=== PATIENT | male | born 1970 | race African-American/Black ===

== ENCOUNTER 2016-08-02 09:19 | Outpatient (CLI) | payer OTHER ==
[2016-08-02] MEDS ORDERED: DOBUTamine 100 MG in D5W 92 ML IV SCH (12:00)
[2016-08-02] MEDS ORDERED: ATROPINE IV ONE (13:50)
== END 2016-08-02 09:20 | disposition home or self-care (01) ==
LOC: ECHO 09:19
PROVIDERS: ATTEND Internal Medicine Cardiovascular Disease
DX: R07.9 Chest pain, unspecified (principal)
CPT/HCPCS: 93017; 93320; 93325; 93350; 96374; J0461; J1250

== ENCOUNTER 2016-08-14 06:45 | Day surgery (SDC) | payer OTHER ==
[2016-08-14] MEDS ORDERED: ECOTRIN PO ONE ×2 (07:39→09:00)
[2016-08-14] MEDS ORDERED: NACL 0.9% 500 ML 500 ML ONE (07:39)
[2016-08-14] MEDS ORDERED: PLAVIX ONE (08:02)
[2016-08-14] MEDS ORDERED: HEPARIN/NS 5000 UNIT/500ML(CATH LAB) 1,000 ML IR ONE (08:08)
[2016-08-14] MEDS ORDERED: HEPARIN 10,000 UNITS/10 ML ONE (08:08)
[2016-08-14] MEDS ORDERED: CALAN ONE (08:09)
[2016-08-14] MEDS ORDERED: XYLOCAINE 2% INFILTRATI ONE (08:09)
[2016-08-14] MEDS ORDERED: SUBLIMAZE ONE (08:09)
[2016-08-14] MEDS ORDERED: NITROGLYCERIN SYRINGE 3 ML ONE (08:09)
[2016-08-14 08:17] LABS: INR 1.16 (0.87-1.13)
[2016-08-14] MEDS ORDERED: PLAVIX PO SCH (09:00)
[2016-08-14] MEDS ORDERED: NACL 0.9% 500 ML 500 ML IV SCH (09:00)
[2016-08-14 10:30] LABS: Basophils % (Auto) 0.6 % (0.0-1.8); Hematocrit 46.7 % (35.5-45.6); Hemoglobin 15.7 gm/dl (11.8-15.2); Mean Corpuscular HGB Conc 34 % (32-34); Mean Corpuscular Hemoglobin 30 pg (28-32); Mean Corpuscular Volume 90 fl (84-94); Platelet Count 214 K/mm3 (140-440); Red Blood Count 5.19 M/mm3 (3.65-5.03); Red Cell Distribution Width 13.2 % (13.2-15.2); White Blood Count 13.6 K/mm3 (4.5-11.0)
[2016-08-14] MEDS: VERSED ONE ×2 (10:49→11:03)
[2016-08-14 10:57] LABS: Anion Gap 19 mmol/L; BUN/Creatinine Ratio 26.66; Blood Urea Nitrogen 16 mg/dL (9-20); Calcium 8.9 mg/dL (8.4-10.2); Carbon Dioxide 23 mmol/L (22-30); Chloride 104.1 mmol/L (98-107); Glucose 89 mg/dL (75-100); Potassium 3.9 mmol/L (3.6-5.0); Sodium 142 mmol/L (137-145)
--- NOTE | 2016-08-14 13:11 | Short Stay Summary ---
Short Stay Documentation Date of service: 08/14/16 - History H&P: obtained from office - Allergies and Medications Current Medications: Allergies No Known Allergies Allergy (Unverified 08/02/16 09:19) Home Medications Medication Instructions Recorded Confirmed Last Taken Type Aspirin [Aspirin TAB] 325 mg PO ONCE 08/13/16 08/14/16 08/12/16 History Clopidogrel Bisulfate [Clopidogrel] 75 mg PO DAILY 08/13/16 08/14/16 08/12/16 History Nebivolol HCl [Bystolic] 2.5 mg PO DAILY 08/13/16 08/14/16 08/12/16 History Pantoprazole Sodium 40 mg PO DAILY 08/13/16 08/14/16 08/12/16 History Simvastatin [Simvastatin] 20 mg PO DAILY 08/13/16 08/14/16 08/12/16 History Active Medications Clopidogrel Bisulfate (Plavix) 75 mg PO QDAY KACEY Last Admin: 08/14/16 08:18 Dose: 75 mg Sodium Chloride (Nacl 0.9% 500 Ml) 500 mls @ 50 mls/hr IV DIRECT KACEY Stop: 08/14/16 18:59 Last Admin: 08/14/16 08:30 Dose: 50 mls/hr - Physical exam General appearance: no acute distress Integumentary: no rash HEENT: Atraumatic Lungs: Clear to auscultation Breasts: deferred Heart: Regular rate Gastrointestinal: normal Male Genitourinary: deferred Female Genitourinary: deferred Rectal Exam: deferred Extremities: no ischemia Neurological: Normal gait - Brief post op/procedure progress note Date of procedure: 08/14/16 Pre-op diagnosis: chest pain, abnormal DSE Post-op diagnosis: same Procedure: LHC and LV gram Anesthesia: MAC Findings: See report Surgeon: MARY NORMAN Estimated blood loss: none Pathology: none Condition: stable - Hospital course Hospital course: Uneventful - Disposition Condition at discharge: Good Disposition: DISCHARGED TO HOME OR SELFCARE Short Stay Discharge Plan Activity: advance as tolerated Weight Bearing Status: Partial Weight Bearing Diet: low fat, low cholesterol, low salt Follow up with: AMEYA ALDRIDGE MD [Primary Care Provider] - 7 Days
[2016-08-14 13:28] VITALS: BP 126/88
--- NOTE | 2016-08-15 15:09 | Cardiac Catherization Report ---
ORDERING PHYSICIAN: Dr. Thompson. INDICATIONS: Chest pain, abnormal dobutamine stress echocardiogram. PROCEDURES PERFORMED: 1. Selective left and right coronary angiography. 2. Left ventriculography. PROCEDURE IN DETAIL: After obtaining written consent, the patient was draped using sterile technique. A 2% lidocaine was injected into the right wrist. A 6-[place] Irish vascular sheath was inserted into the right radial artery. A 6-[place] Irish JL3.5 catheter was used to selectively engage the left coronary artery. A 6-Northern Irish JR4 catheter was used to selectively engage the right coronary artery. A 6-[place] Irish JR4 catheter was used to hand inject the left ventriculogram. No complications occurred during the procedure. Hemostasis was achieved at the end of the procedure using manual pressure. SPECIMEN REMOVED: None. ESTIMATED BLOOD LOSS: Minimal. FINDINGS: HEMODYNAMICS: 1. The aortic pressure was 102/70, LV systolic pressure is 105 mmHg, LV end-diastolic pressure is 17 mmHg. There was no significant gradient noted across the left ventricular outflow tract. 2. Cardiac structures. The left ventricle is mildly dilated. There is evidence of inferior wall akinesis. The left ventricular ejection fraction is estimated between 40% and 45%. CORONARY ANATOMY: 1. This is a left dominant circulation. 2. The left main has mild diffuse vessel disease with approximately 10% luminal reduction. 3. The left anterior descending artery has evidence of a patent stent noted in the proximal to mid segment. The distal LAD has mild diffuse luminal irregularities with close to 10-20% luminal reduction. There is also a small stent noted in the proximal segment of the first diagonal artery with 30% in-stent restenosis. Distal to the stent, there is a focal 70% stenosis of the first diagonal artery. This vessel is 2 mm in diameter. 4. The left circumflex artery has evidence of a mid segment, patent stent. Distal to the stent, there is a trifurcation of the circumflex artery into the posterior descending artery, distal circumflex as well as the PLOM. The PLOM has 100% stenosis proximally and ostially and is filling via left to left collaterals from the circumflex artery. The distal circumflex artery also has a focal 90% stenosis distal to the stent. The PDA has scattered multiple 70-80% lesion distal to the stent. These vessels are small in caliber measuring 2 mm in diameter. 5. The right coronary artery is a small vessel. There is evidence of a 90% tubular lesion of the mid right coronary artery followed by a 70% focal lesion of the distal right coronary artery. Slow flow is noted in the distal right coronary artery. This vessel is also 2 mm in diameter. IMPRESSION: 1. Patent stent noted in the proximal and mid LAD as well as in the mid circumflex artery. 2. 30% in-stent restenosis of the first diagonal artery stent. 3. Extensive small vessel disease with a 70% focal stenosis of the first diagonal artery distal to the stent, 100% stenosis of the proximal PLOM that is noted to be filling via collaterals from the left circumflex artery, 90% stenosis of the distal circumflex distal to the mid segment stent, and at 70-80% stenosis of the posterior descending artery originating from the left circumflex artery. There is also evidence of significant disease in the right coronary artery with 90% tubular lesion in the midsegment in a 70% focal lesion in the distal segment. These diseased vessels; however, are 2 mm or less in diameter and are not amenable to angioplasty. These images were reviewed with Dr. Thompson. 4. Mildly dilated left ventricular cavity with mild systolic dysfunction and left ventricular ejection fraction estimated between 40% and 45%, and evidence of inferior wall akinesis. RECOMMENDATIONS: 1. Continue current medical therapy and optimize antianginal medications. The patient was advised regarding chronic angina symptoms. The patient has extensive small vessel disease that is not amenable to angioplasty. 2. 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 JOB# [id number] YARIEL/JOSE
== END 2016-08-14 14:00 | disposition home or self-care (01) ==
LOC: OPU 06:45
PROVIDERS: ATTEND Internal Medicine
DX: I25.10 Atherosclerotic heart disease of native coronary artery without angina pectoris (principal); K21.9 Gastro-esophageal reflux disease without esophagitis; E78.5 Hyperlipidemia, unspecified; I10 Essential (primary) hypertension; Z87.891 Personal history of nicotine dependence; Z79.82 Long term (current) use of aspirin; Z79.899 Other long term (current) drug therapy; Z95.5 Presence of coronary angioplasty implant and graft; Z82.49 Family history of ischemic heart disease and other diseases of the circulatory system
CPT/HCPCS: 36415; 80048; 85025; 85610; 85730; 93005; 93010; 93458; C1887; C1894; J1644; J2250; J3010; J7040; Q9967

== ENCOUNTER 2020-08-06 19:01 | Emergency (ER) | payer OTHER ==
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
[2020-08-06 19:29] VITALS: BP 162/97
--- NOTE | 2020-08-06 19:39 | XRay Report ---
CHEST 2 VIEWS INDICATION / CLINICAL INFORMATION: Evaluation for pneumothorax. COMPARISON: None available. FINDINGS: SUPPORT DEVICES: None. HEART / MEDIASTINUM: No significant abnormality. LUNGS / PLEURA: No significant pulmonary or pleural abnormality. No pneumothorax. ADDITIONAL FINDINGS: No significant additional findings. IMPRESSION: 1. No acute findings. Signer Name: Elliott Jackson MD Signed: 08/06/2020 7:35 PM Workstation Name: [id number]
--- NOTE | 2020-08-07 11:15 | Electrocardiograph Report ---
[facility] Test Date: 2020-08-06 Test Time: 19:13:39 Pat Name: DAX MARTINEZ Department: Room: Gender: M It Quality Analyst: MILIND : 1970 Requested By: VINAYAK BROWN Order Number: [id number] Reading MD: Ramón Vivar Measurements Intervals [place] Rate: 69 P: 41 MI: 145 QRS: 33 QRSD: 82 T: -38 QT: 394 QTc: 422 Interpretive Statements Sinus rhythm Probable inferior infarct, age indeterminate Posterior infarct, old No previous ECG available for comparison Electronically Signed On 08-07-2020 11:14:48 EDT by Ramón Vivar
== END 2020-08-06 20:08 | disposition home or self-care (01) ==
LOC: ED 19:01
DX: S29.012A Strain of muscle and tendon of back wall of thorax, initial encounter (principal); R07.89 Other chest pain; I10 Essential (primary) hypertension; I25.2 Old myocardial infarction; K21.9 Gastro-esophageal reflux disease without esophagitis; Z79.899 Other long term (current) drug therapy; V49.49XA Driver injured in collision with other motor vehicles in traffic accident, initial encounter; Y92.410 Unspecified street and highway as the place of occurrence of the external cause; Y93.89 Activity, other specified; Y99.8 Other external cause status
CPT/HCPCS: 71046; 93005